=== PATIENT | male | born 2000 | race Caucasian/White ===

== ENCOUNTER 2023-09-19 12:37 | Emergency (ER) | payer MEDICAID ==
[~2023-09-19] VITALS: Ht 175.3 cm; Wt 68.0 kg
[2023-09-19 13:00] VITALS: TEMP 97.8
[2023-09-19] MEDS: ACETAMINOPHEN 500 MG TABLET PO ONE (13:25)
[2023-09-19] MEDS: IBUPROFEN 600 MG TABLET PO ONE (13:25)
[2023-09-19] MEDS ORDERED: AMOX250C4 PO (14:49)
[2023-09-19 15:05] VITALS: BP 111/67; PULSE 78; RESP 16
== END 2023-09-19 15:22 | disposition home or self-care (01) ==
LOC: EMS 12:37
DX: H66.92 Otitis media, unspecified, left ear (principal)
CPT/HCPCS: 99283